=== PATIENT | male | born 1985 | race African-American/Black ===

== ENCOUNTER 2018-06-25 11:44 | Emergency (ER) | payer MEDICAID ==
[~2018-06-25] VITALS: Ht 177.8 cm; Wt 67.0 kg
[2018-06-25 11:58] VITALS: BP 137/82
[2018-06-25] MEDS ORDERED: LIDOCAINE HCL/PF 1% 10 MG/ML 5ML VIAL IJ ONE (12:45)
== END 2018-06-25 13:56 | disposition home or self-care (01) ==
LOC: ER 11:44
DX: L72.3 Sebaceous cyst (principal); F12.10 Cannabis abuse, uncomplicated
CPT/HCPCS: 99283

== ENCOUNTER 2023-11-27 18:18 | Emergency (ER) | payer MEDICAID ==
[~2023-11-27] VITALS: Ht 182.9 cm; Wt 68.0 kg
[2023-11-27 18:29] VITALS: BP 128/86; O2SAT 100
[2023-11-27] MEDS ORDERED: LIDOCAINE HCL/PF 1% 10 MG/ML 5ML VIAL INFIL ONE (20:15)
[2023-11-27] MEDS ORDERED: SULF1TAB48 MT (20:35)
[2023-11-27] MEDS ORDERED: IBUP-2030 MT (20:35)
[2023-11-27 21:03] VITALS: PULSE 87; RESP 16; TEMP 98.2
== END 2023-11-27 21:27 | disposition home or self-care (01) ==
LOC: ER 18:18
DX: H66.41 Suppurative otitis media, unspecified, right ear (principal); F12.10 Cannabis abuse, uncomplicated
CPT/HCPCS: 10060; 99283